=== PATIENT | female | born 1985 | race Two or more races ===

== ENCOUNTER 2023-10-05 23:27 | Emergency (ER) | payer SELFPAY ==
[~2023-10-05] VITALS: Ht 147.3 cm; Wt 70.0 kg
[2023-10-06 02:34] VITALS: BP 114/70; PULSE 68; RESP 18; TEMP 98.5; O2SAT 98
[2023-10-06] MEDS ORDERED: CETI5TAB6 PO (03:05)
[2023-10-06] MEDS ORDERED: ERY05OO OP (03:05)
[2023-10-06] MEDS ORDERED: CEPH500C PO (03:05)
[2023-10-06] MEDS ORDERED: CEPHALEXIN 250 MG CAP PO ONE (03:15)
== END 2023-10-06 03:45 | disposition home or self-care (01) ==
LOC: ER 23:27
DX: H00.011 Hordeolum externum right upper eyelid (principal); Z79.899 Other long term (current) drug therapy